=== PATIENT | female | born 1960 | race Caucasian/White ===

== ENCOUNTER 2021-03-11 09:36 | Outpatient (REF) | payer OTHER, SELFPAY ==
[2021-03-11 09:56] LABS: Binax Internal Control QC Valid; Binax Lot number: 1911; Binax Now Covid-19 Ag Negative (Negative)
== END 2021-03-11 09:37 | disposition home or self-care (01) ==
LOC: HO.LAB 09:36
PROVIDERS: Visit Provider Internal Medicine
DX: Z20.822 Contact with and (suspected) exposure to COVID-19 (principal)
CPT/HCPCS: 36415; C9803

== ENCOUNTER → 2025-02-20 08:00 | Outpatient (BNV) | payer OTHER, SELFPAY | PROVIDERS: Visit Provider Radiology Body Imaging | DX: N63.21 Unspecified lump in the left breast, upper outer quadrant (principal) | CPT/HCPCS: 76642; 77062; 77066 ==

== ENCOUNTER 2025-02-20 08:10 | Outpatient (REF) | payer OTHER, SELFPAY ==
--- NOTE | ~2025-02-20 | US_ITS ---
EXAMINATION(S): 1. MM DIAGNOSTIC DIGITAL BREAST TOMOSYNTHESIS, BILATERAL 2. TARGETED ULTRASOUND OF THE LEFT BREAST CLINICAL INFORMATION: N63.20 - Unspecified lump in the left breast, unspecified quadrant COMPARISON: None. This is a baseline study. TECHNIQUE: Digital breast tomosynthesis is performed in both the mediolateral oblique and craniocaudal views along with computer-aided detection (CAD). Synthesized 2D images are generated from the tomosynthesis. Skin BB marker was placed at the location of the palpable concern in the left breast. FINDINGS: BREAST COMPOSITION: The breasts are heterogeneously dense, which may obscure small masses. RIGHT BREAST: Asymmetry in the subareolar region on the MLO view. No suspicious calcifications or other abnormalities are seen. Targeted ultrasound of the right breast was performed at the location of the mammographic finding. The survey of the retroareolar region of the right breast shows a 1.6 x 0.6 x 0.8 cm simple cyst at 12 o'clock position. No internal vascularity demonstrated with color Doppler evaluation. LEFT BREAST: -Approximately 3.0 cm spiculated mass in the upper outer quadrant at about 7 cm from the nipple, subjacent to the skin BB marker. -Approximately 1.7 cm mass with spiculated margins in the lower axillary region at about 15 cm from the nipple. Targeted ultrasound of the left breast was performed at the location of the palpable/mammographic findings. -At the palpable concern as indicated by the patient and mammographic finding, there is an irregular hypoechoic solid mass, with the largest component measuring 2.1 x 1.9 x 2.0 cm at 2 o'clock position at 8 cm from the nipple. -At the location of the mammographic finding in the lower axilla. The survey shows a 1.7 x 1.2 x 1.7 cm irregular hypoechoic solid mass, which may represent an abnormal lymph node or additional mass. No internal vascularity demonstrated with color Doppler evaluation. US/US Breast BI Limited Mamm Only IMPRESSION: RIGHT BREAST: Benign, no mammographic evidence of malignancy. LEFT BREAST: 1. Palpable solid mass at 2 o'clock position at 8 cm from the nipple, with the largest component measuring 2.1 cm. Suspicious findings. An ultrasound-guided needle core biopsy is recommended. 2. Abnormal lymph node or additional solid mass in the lower axilla. Suspicious findings. An ultrasound-guided fine-needle aspiration or needle core biopsy is recommended. ASSESSMENT: BI-RADS: Category 4: Suspicious RECOMMENDATION: Biopsy recommended Results were discussed by me with the patient at time of visit. This patient's information was entered into a reminder system with a target due date for their next mammogram. Electronically signed by: Jack Garcia MD 02/20/2025 10:29 AM [facility] [place]
== END 2025-02-20 08:11 | disposition home or self-care (01) ==
LOC: HO.MAMMO 08:10
PROVIDERS: Visit Provider Nurse Practitioner Family
DX: N64.89 Other specified disorders of breast (principal); N63.21 Unspecified lump in the left breast, upper outer quadrant
CPT/HCPCS: 76642; 77062; 77066

== ENCOUNTER 2025-03-12 11:24 | Outpatient (AMB) | payer OTHER, SELFPAY ==
--- NOTE | 2025-03-12 11:26 | A.OFFPC_ITS ---
Vital Signs 03/12/25 11:33 Height 5 ft 7 in Weight 166 lb 6 oz BMI 26.1 BP 132/70 Blood Pressure Location Lt brachial Position Sitting Respiration 13 Pulse 78 Pulse Source Pulse Oximeter Temp 97.5 F Temp Source Oral Pulse Oximetry (%) 96 Oxygen Delivery Method Room Air Intake Visit Reasons: Est. Care (see comment) Intake Note: New patient to establish care Nuclear Medical Technologist Required: No Allergies Sulfa (Sulfonamide Antibiotics) Allergy (Severe, Verified 03/12/25 11:46) Rash Medication List - Last Reconciled 03/12/25 by Doreen Bullock, SOLIDS CONTROL TECHNICIAN- multivitamin 1 tab PO DAILY Tobacco use date assessed: 03/12/25 Dental Screening Dental Screen Date: 03/12/25 Did you have a dental visit in the last 12 months?: Yes Did you have a dental problem in the last 6 months where you did not have access to dental care?: No Was dental information given to patient?: Patient has dentist HPI HPI Comments History of Present Illness Details 64 y/o F with abnormal mammo, current sm oker 40 pyh, s/p GLENDA, appendectomy Social: , works at [employer] in [place], has 2 sons, 4 grandchildren Fhx: She is adopted and does not know her family medical history. Health Maintenance Flu 12/2024 Tdap 03/12/25 Mammo 01/2025 EDOUARDRamiro Jarvis has never had one [facility] Specialists Gen Surg History of Present Illness The patient is a 64 year old female presenting with establishing care and evaluation of a left breast mass. Left breast mass: - The patient presents to establish care after a mammogram revealed a mass in her left breast. - She reports months of worsening pain i n the breast, which prompted her to seek a mammogram. - This was her first mammogram. - The patient notes that the breast appe ars visually different. - She believes she has breast cancer and thinks it may be stage 4. - She has an appointment with a general surgeon, Dr. Lorenzo, on April 02 and a biopsy scheduled for April 04. - She is adopted and does not know her f amily medical history. - The patient reports some fatigue but o therwise feels healthy and is physically active. Tobacco use disorder: - The patient is a current smoker, farhan ng one pack per day for approximately 40 years. - She acknowledges she will have to quit but is not ready at this moment. - She does not drink alcohol or use illi cit drugs. Preventative Care: - The patient has been without a primary care provider for several years. - She has never had a colonoscopy. - The patient has had a flu shot this ye ar but has not had a Tdap vaccine in the last 10 years. Past Medical History - Total abdominal hysterectomy, date unk nown. - Appendectomy, date unknown. - Sinus infection treated with fluticaso ne nasal spray in the summer. - Allergy to sulfa. - Adopted, family history unknown. Review of Systems - Constitutional: Reports fatigue and a 30-pound weight gain over the last year and a half. - Breast: Reports a painful mass in the left breast which has worsened over months. - Respiratory: Denies shortness of breat h and cough. - Neurological: Reports occasional heada ches. - Psychiatric: Denies symptoms of anxiet y or depression currently requiring medication but reports trying not to think about her diagnosis. Physical Exam General: Well developed, well nourished, in no acute distress. Appears stated age. Head: Normocephalic, atraumatic. Eyes: Pupils are equal, round and reactive to light and accommodation. Conjunctivae are clear. Vision grossly normal. Lungs: Clear to auscultation bilaterally. No rales, rhonchi or wheeze noted. Good air flow in all raman. Chest: L breast w/ obvious mass deformity; palpable mass Heart: Regular rate and rhythm. No murmurs, click, rubs or gallops are noted. Psych: Mood and affect appropriate. Results - Imaging: - Mammogram: Revealed a mass in the left breast. Labs from today pending Medical Decision Making The patient is a 64-year-old female with a new diagnosis of a left breast mass found on her first mammogram, presenting to [facility] care. She has been experiencing worsening breast pain for months and notes a visible change in the breast. Given her history of smoking a pack a day for 40 years, there is concern for malignancy, and she herself believes she has advanced breast cancer. She has already been scheduled for a surgical consultation on April 02 and a biopsy on April 04. She has expressed a strong desire to delay any further evaluation or discussion of the findings until after the to avoid upsetting her family, a decision which is supported. Labs will be drawn to screen for anemia, which can be a sign of advanced cancer. Further imaging beyond the scheduled biopsy, such as a PET scan to determine staging, will be deferred until after the pathology results are known. The patient's coping mechanism appears to be avoiding dwelling on the diagnosis, and she currently declines any medication for anxiety. We also discussed the importance of Tdap vaccination, especially for protection against tetanus with upcoming procedures, and she has agreed to receive it today. The patient will be instructed on how to use the patient portal for communication, particularly for receiving lab results. Plan 1. Left Breast Mass - The patient will proceed with her sche duled appointment with general surgery on April 02 and biopsy on April 04. - Lab work will be ordered to screen for anemia. - The staging process, likely involving a PET scan, will follow the biopsy and pathology results, which will determine the type of cancer. - The patient expressed a desire to wait until after the holidays for these appointments, which is respected. - A discussion was held regarding treatm ent options, including chemotherapy and alternative treatments, and the importance of aligning treatment with her quality of life goals. 2. Tobacco Use Disorder - The patient smokes a pack a day and martins s done so for about 40 years. - She acknowledges the need to quit but is not ready at this time. - Offered support for cessation, such as nicotine replacement, which she may consider in the future. 3. Preventative Care: Establishment Of C are - This visit serves to establish primary care. - The patient was instructed to sign up for the patient portal to facilitate communication and receive lab results. 4. Preventative Care: Tdap Immunization - Discussed the importance of a Tdap vac cine for protection against tetanus, especially with upcoming procedures, and pertussis, given her contact with young grandchildren. - The patient agreed and will receive th e Tdap vaccine today. 5. Preventative Care: Colon Cancer Scree bao - The patient reports she has never had a colonoscopy, which is recommended for screening. - Will hold off on this for right now Patient Instructions - Keep your appointments with Dr. Rhea franks on April 02 and for your biopsy on April 04. - Please sign up for the patient portal. This will be the best way to communicate with me and to receive feedback on your lab results. - It is recommended that you receive a T dap (tetanus, diphtheria, and whooping cough) vaccine today. This is important to reduce infection risk with any future procedures and to protect your young grandchildren. - We will draw some blood today for lab tests to check for things like anemia (low red blood cell count). - Please reach out through the patient p ortal if your mood changes or if you feel you need support for anxiety or depression. - Let me know when you are ready to disc uss quitting smoking, and we can provide support and resources. - RTO as needed and for a CPE after work up for breast mass is complete. Consent Patient was informed and verbally consented to the use of an ambient scribe for clinic note documentation during this visit. Total time spent caring for the patient today was 45 minutes. This includes time spent before the visit reviewing the chart, time spent during the visit, and time spent after the visit on documentation, reviewing laboratory results, diagnostic imaging, medications, performing a medically necessary evaluation, counseling on diagnoses, care coordination, ordering appropriate tests, ordering appropriate medications, review of tests performed by other providers, reporting test results with the patient, communication with other healthcare providers. [facility] Medical History (Updated 03/12/25 @ 14:37 by Doreen Bulolck, [facility]) Hx of mammogram (~12/2024) No pertinent family history No pertinent past medical history Surgical History (Updated 03/12/25 @ 11:32 by Kwasi Jaramillo MA) H/O: hysterectomy History of appendectomy Social History (Updated 03/12/25 @ 11:36 by Kwasi Jaramillo MA) Household Members: Spouse and Children Both parents involved: No Caregiver staying overnight: No Housing: House Are you a primary physician locums urgent care to a significant other at home: Yes Do you presently have visiting nurse or other home services: No 75 years or older and lives alone: No Patient Tobacco Use Status: Current everyday Tobacco user Tobacco use type: Cigarette Cigarette Packs Per Day: 1 Cigarettes Per Day: 20 Years Smoked: 40 Packs Per Year: 40 Packs per year/per ci.00 e-Cigarette/Vaping Use: Never Used Second Hand Smoke Exposure: No service: No Current occupational status: employed Current occupation: [employer] Current occupational exposures/hazards: No Cognitive needs: No Hearing needs: No Vision needs: No Questionnaire PHQ-9 Over the last 2 weeks, how often have you been bothered by any of the following problems? 1. Little interest or pleasure in doing things: not at all 2. Feeling down, depressed, or hopeless: not at all 3. Trouble falling or staying asleep, or sleeping too much: not at all 4. Feeling tired or having little energy: several days 5. Poor appetite or overeating: not at all 6. Feeling bad about yourself - or that you are a failure or have let yourself or your family down: not at all 7. Trouble concentrating on things, such as reading the newspaper or watching television: not at all 8. Moving or speaking so slowly that other people could have noticed. Or the opposite - being so fidgety or restless that you have been moving around a lot more than usual: not at all 9. Thoughts that you would be better off or of hurting yourself in some way: not at all Total score: 1 Depression Screening Interpretation: Negative Depression Screening Done: Yes 63045 - PHQ-9 Billing: Yes Source: Developed by Drs. Humble Frost, Manju Pittman, Melvin Perez and colleagues, with an educational chetan from [employer]. Thrive Questionnaire Date Thrive assessed: 03/12/25 I am a: Patient What is your living situation today?: I have a steady place to live Within the past 12 months, did the food you bought not last and you didn't have the money to get more?: Never true Within the past 12 months, did you worry whether your food would run out before you got money to buy more?: Never true Do you have trouble paying for medicines?: No Do you have trouble getting transportation to medical appointments?: No Do you have trouble paying your heating and electricity bill?: No Do you have trouble taking care of your child, family member or friend?: No Do you have trouble with day-to-day activities such as bathing, preparing meals, shopping, managing finances, etc.?: No Are you currently unemployed and looking for a job?: No Are you interested in more education?: No Please select the resources that you would like help with: None Currently or been in a relationship where the following occur: No concerns reported THRIVE Score: 0 AUDIT C Alcohol Use Questionnaire (AUDIT-C) 1. How often do you have a drink containing alcohol?: Never 3. How often do you have six or more drinks on one occasion?: Never Total Score: 0 Score Reviewed/Action Taken: Yes CALVIN-7 AMB Questionnaire CALVIN-7 Date CALVIN - 7 assessed: 03/12/25 Feeling nervous, anxious, or on edge: 0 = Not at all Not being able to stop or control worryin = Not at all Worrying too much about different things: 0 = Not at all Trouble relaxin = Not at all Being so restless that it is hard to sit still: 0 = Not at all Becoming easily annoyed or irritable: 0 = Not at all Feeling afraid as if something awful might happen: 0 = Not at all Total CALVIN-7 score (0-4 normal; 5-9 mild; 10-14 moderate; 15-21 severe): 0 Source: Developed by Drs. Humble Frost, Manju Pittman, Melvin Perez and colleagues, with an educational chetan from [employer]. CALVIN-7 Assessment Billing CALVIN-7 Assessment Tool: CALVIN-7 Assessment 21233 Physical exam (Primary Care) Vital Signs: Last Vital Signs Temp 97.5 F 03/12/25 11:33 Pulse 78 03/12/25 11:33 Resp 13 03/12/25 11:33 BP 132/70 03/12/25 11:33 Pulse Ox 96 03/12/25 11:33 Oxygen Delivery Method Room Air 03/12/25 11:33 BMI result Body Mass Index 26.1 Tobacco/Smoking Status: Tobacco use Status Tobacco use date assessed 03/12/25 03/12/25 11:36 Patient Tobacco Use Status Current everyday Tobacco 03/12/25 11:36 Tobacco use type Cigarette 03/12/25 11:36 e-Cigarette/Vaping Use Never Used 03/12/25 11:36 Tobacco cessation counseling provided: Yes Items discussed: Nicotine replacement, QuitWorks and Other Relapse Prevention: discussed the importance of a supportive environment, discussed extending NRT, discussed negative mood or depression after quitting, weight gain after smoking is common and discussed dietary, exercise and/or lifestyle changes Number of minutes spent counselin CPT code: 54900 - 4-10 Minutes PHQ-9: PHQ-9 Score PHQ-9: Total score 1 03/12/25 13:31 Depression Screening Interpretation: Negative Thrive Assessment: Date of Thrive Assessment Date Thrive assessed 03/12/25 03/12/25 11:36 Currently or been in a relationship where the following occur: No concerns reported Immunizations Boostrix Tdap 2.5 Lf unit-8 mcg-5 Lf/0.5 mL intramuscular syringe Performing Provider: HITESH Bar Performing Location: [facility] Family Medicine Administered by: Alma Rosa Brice CMA on 03/12/25 13:31 Dose Route Admin Location Dispensed Lot Number Expiration Date NDC Spice Blender 0.5 mL IM Left Deltoid 0.5 mL [id number] 02/23/27 [id number] [employer] Total Dispensed Waste 0.5 mL 0 % VIS Given Date VIS Provided VIS Publication Date 03/12/25 Single Vaccine 20 Eligibility Eligibility Date Funding Source Not [facility] Eligible 03/12/25 Private Coding Level of Care Code New Pt Level 4 (29182) Add On Problem Visit Only Diagnoses Encounter to establish care with new provider Z76.89 Current smoker F17.200 Hx of mammogram Z92.89 Left breast lump N63.20 Fatigue, unspecified type R53.83 Fatigue type: unspecified Need for Tdap vaccination Z23 Additional Codes CALVIN-7 Assessment Billing - CALVIN-7 Assessment Tool: CALVIN-7 Assessment 37808 ([id number]) PHQ-9 - 28397 - PHQ-9 Billing: Yes ([id number]) Vital Signs *Quality* - CPT code: 31310 - 4-10 Minutes ([id number]) Assessment & Plan Assessment & Plan (1) Encounter to establish care with new provider: Code(s): Z76.89 - Persons encountering health services in other specified circumstances (2) Current smoker: Comment: 40 pack year history Not interested in quitting at this time Lung ca screening deferred @ this time Code(s): F17.200 - Nicotine dependence, unspecified, uncomplicated Category: Social Hx (3) Hx of mammogram: Onset Date: ~12/2024 Code(s): Z92.89 - Personal history of other medical treatment Category: Medical (4) Left breast lump: Code(s): N63.20 - Unspecified lump in the left breast, unspecified quadrant Category: Medical (5) Fatigue: Code(s): R53.83 - Other fatigue Category: Medical Qualifiers: Fatigue type: unspecified Qualified Code(s): R53.83 - Other fatigue (6) Need for Tdap vaccination: Onset Date: ~03/12/25 Code(s): Z23 - Encounter for immunization Category: Medical Plan . Orders: Orders Complete Blood Count no Diff Today N63.20 - Unspecified lump in the left breast, unspecified quadrant, R53.83 - Other fatigue Comprehensive Met. Panel Today N63.20 - Unspecified lump in the left breast, unspecified quadrant, R53.83 - Other fatigue Vitamin B12 and Folate Today N63.20 - Unspecified lump in the left breast, unspecified quadrant, R53.83 - Other fatigue Vitamin D 25-OH Total Today N63.20 - Unspecified lump in the left breast, unspecified quadrant, R53.83 - Other fatigue Ferritin Today F17.200 - Nicotine dependence, unspecified, uncomplicated, R53.83 - Other fatigue IRON PROFILE Today F17.200 - Nicotine dependence, unspecified, uncomplicated, R53.83 - Other fatigue Hemoglobin A1c Today N63.20 - Unspecified lump in the left breast, unspecified quadrant, R53.83 - Other fatigue Lipid Panel Today N63.20 - Unspecified lump in the left breast, unspecified quadrant, R53.83 - Other fatigue Microalbumin, Random (w Creat) Today N63.20 - Unspecified lump in the left breast, unspecified quadrant, R53.83 - Other fatigue TSH reflex Free T4 Today N63.20 - Unspecified lump in the left breast, unspecified quadrant, R53.83 - Other fatigue TDaP Immunization Today Z23 - Encounter for immunization Patient Instructions: Walk-In Care (Urgent Care): We Make it Easy Walk-in for urgent medical issues such as: ? Seasonal Allergies ? Insect Bites ? Cough ? Diarrhea ? Acute Asthma Attacks ? Back, Knee or Joint Pain ? Ear Infection ? Fever without a Rash ? Headaches ? Nausea ? [place], Rash or Skin Irritation ? Sore Throat ? Sports Physicals ? Vomiting Most insurances are accepted. Patients do not need to be part of the [facility] to seek care at the walk-in clinic. Locations [address] [place] [address] Open Wednesday through Wednesday 8am-5pm *Hours may vary due to staffing availability. To confirm Walk-In Care hours please call. [address] [facility] , [place] [address] ? [phone] [facility] Walk-In Care in [place] provides services to ages 18 and over. Open Wednesday-Wednesday: 7 a.m. to 5 p.m. and Wednesday: 9 a.m. to 3 p.m.* *Hours may vary due to staffing availability. To confirm Walk-In Care hours in [place], please call [phone]. [address] [place] [address] ? [phone] [facility] Walk-In Care in [place] provides services to ages 12 and over. Open Wednesday-Wednesday: 8 a.m. to 5 p.m. Hours may vary due to staffing availability. To confirm Walk-In Care hours in [place], please call [phone]. LABORATORY SERVICES: [facility] Lab ? Primary Location [address] [place] [address] Wednesday through Wednesday 6:00 AM ? 5:00 PM Wednesday 7:00 AM ? 11:00 AM* [phone] The [facility] Lab is centrally located near the front entrance of the [facility] for easy outpatient access. Convenient parking is provided for outpatients. *Hours may vary due to staffing availability. To confirm Laboratory hours for any location, please call [phone]. Offsite Location For your convenience, we offer offsite laboratory draw stations at the following locations: [address] [place] [address] ? [address], [facility] Wednesday through Wednesday 7:30 AM ? 1:00 PM* [phone] *Hours may vary due to staffing availability. To confirm Laboratory hours for any location, please call [phone]. [place] ? [address] Wednesday through Wednesday 6:00 AM ? 3:30 PM* Wednesday 6:30 AM ? 3 PM* [phone] *Hours may vary due to staffing availability. To confirm Laboratory hours for any location, please call [phone] [place] [address] Wednesday through Wednesday 7:30 AM ? 4:00 PM* [phone] *Hours may vary due to staffing availability. To confirm Laboratory hours for any location, please call [phone] [place] [address] Wednesday through 9:00 AM ? 4:00 PM* *Hours may vary due to staffing availability. To confirm Laboratory hours for any location, please call [phone]. Appointments are not necessary. Walk-ins are welcome. Like all the departments throughout the [facility], our Lab undergoes frequent reviews to ensure the quality and accuracy of test results, and our staff takes special pride in its status as a nationally accredited facility. Patient Portal: [facility] ONE PATIENT. ONE RECORD. BETTER CARE. [facility] has a fully integrated, cutting- edge mobile electronic health information system that has revolutionized the way we care for our patients and manage our organization. This system improves communication and coordination enabling us to provide safe, higher-quality care, and an overall positive experience for staff and patients. Our first priority, as always, is to deliver the highest quality care possible. The system is running in the background supporting that priority. This portal is for all [facility] services and practices. If you are experiencing any technical difficulties with enrolling or logging into the Patient Portal please complete the [facility] Patient Portal Technical Support Form. [facility] now offers a new secure on-line interactive tool for patients to review their health information ? ?Patient Portal. This interactive web portal will enable patients and their families to take an active role in their care by providing easy, secure access to their health information via the internet. The Patient Portal provides patients with instant access to their health information, including laboratory results, medications, allergies, demographic information, visit history, and more. In addition to managing their own care, parents and health care proxies with authorized consent will appreciate the ability to access the records of those individuals for whom they provide care. Please note: if you wish to gain access (Proxy) to another patient?s portal, you will be required to come to the Medical Records Department in person at [facility]. Both the patient giving proxy access and the proxy will need to provide photo identification and complete the appropriate authorization. The Patient Portal also allows track their appointments online. The [facility] Patient Portal also saves patients time by allowing them to submit updates to their demographic and contact information prior to their visits. Portal email notifications will also alert patients to any new activity on their portal, such as test results and new appointments. In order to initially enroll in the [facility] Patient Portal, you will need to enter some required information including the following: * your [facility] Medical Record number * your personal home email address * name * date of Please note: In order to enroll in the [facility] Patient Portal, we need to have your email address on file in your electronic medical record. ?The email address needs to be specific for one person (yourself) in order for your Portal enrollment to be successful. ?You can update your email address in person with our Registration staff when you are registering for a hospital visit. ?Otherwise, you will need to come to the Health Information Management (Medical Records) Department at [facility]. ?We are open from Wednesday ? Wednesday from 7:30 a.m. ? 4:30 p.m. ?You will be required to present a photo id. Once you have successfully enrolled in the Patient Portal, you will receive a one-time user id and password for the Portal, sent to your email address. ?This will allow you to log into the Patient Portal within 99 hrs and reset your own logon id and password, and define personal security questions. ?Once your permanent login and password have been set, you can log into the [facility] Patient Portal at any time via the blue button above or from the Portal Logon button on any page of the [facility] [facility]. [facility] and [facility] encourage all of our patients to enroll in Patient Portal as it presents a valuable opportunity for patients and their families to actively participate in their care and stay healthy Welcome to [facility]. ?We look forward to working with you.
[2025-03-12 11:33] VITALS: BP 132/70; PULSE 78; RESP 13; TEMP 36.4; O2SAT 96; BMI 26.1
== END 2025-03-12 12:34 | disposition home or self-care (01) ==
LOC: HO.HMCFM 11:25
PROVIDERS: PCP Nurse Practitioner Family; Visit Provider Nurse Practitioner Family
DX: Z76.89 Persons encountering health services in other specified circumstances (principal); F17.200 Nicotine dependence, unspecified, uncomplicated; Z92.89 Personal history of other medical treatment; N63.20 Unspecified lump in the left breast, unspecified quadrant; R53.83 Other fatigue; Z23 Encounter for immunization

== ENCOUNTER 2025-03-12 11:24 | Outpatient (REF) | payer OTHER, SELFPAY ==
[2025-03-12 15:41] LABS: Microalbum/Creatinine Ratio Ur 37.4 ug/mg cr (<30)
[2025-03-12 18:18] LABS: Hematocrit 50.7 % (37.0-47.0); Hemoglobin 16.9 g/dl (12.0-16.0); Mean Corpuscular HGB Conc 33.3 g/dl (31.0-35.0); Mean Corpuscular Hemoglobin 30.5 pg (27.0-33.0); Mean Corpuscular Volume 91.4 fL (80.0-98.0); NRBC Abs Auto 0.000 X10*3/uL (0.0-0.012); NRBC Pct Auto 0.0 /100WBC (0.0-0.2); Platelet Count 298 X10*3/uL (160-400); Red Blood Count 5.55 X10*6/uL (4.20-5.50); White Blood Count 9.5 X10*3/uL (4.8-10.8)
[2025-03-12 19:01] LABS: Alanine Aminotransferase 27 U/L (0-31); Albumin Level 5.0 g/dL (3.5-5.0); Alkaline Phosphatase 83 U/L (39-117); Anion Gap 14 (12-20); Aspartate Amino Transferase 28 U/L (5-31); Blood Urea Nitrogen 15 mg/dL (9-16); Calcium 10.2 mg/dL (8.4-10.2); Carbon Dioxide 25 mmol/L (22-29); Chloride 108 mmol/L (96-108); Cholesterol 194 mg/dL (<200); Estimated Glomerular Filt Rate > 60; Ferritin 102 ng/mL (10-250); HDL Cholesterol 69 mg/dL (>40); Iron 82 mcg/dL (30-160); Percent Iron Saturation 26 % (15-50); Potassium 4.9 mmol/L (3.3-5.1); Sodium 142 mmol/L (135-145); Total Iron Binding Capacity 311 mcg/dL (228-428); Total Protein 7.4 g/dL (6.5-8.0); Triglycerides 95 mg/dL (<150); Unsaturated Iron Binding 229 ug/dL
[2025-03-12 19:12] LABS: Folate 13.3 ng/mL (> or = 4.0); Vitamin B12 713 pg/mL (200-900)
== END 2025-03-12 11:25 | disposition home or self-care (01) ==
LOC: HO.WFDLDS 11:24
PROVIDERS: PCP Nurse Practitioner Family; Visit Provider Nurse Practitioner Family
DX: Z23 Encounter for immunization (principal); Z76.89 Persons encountering health services in other specified circumstances; R53.83 Other fatigue; N63.20 Unspecified lump in the left breast, unspecified quadrant; F17.210 Nicotine dependence, cigarettes, uncomplicated; Z92.89 Personal history of other medical treatment; Z79.899 Other long term (current) drug therapy
CPT/HCPCS: 36415; 80053; 80061; 82043; 82306; 82570; 82607; 82728; 82746; 83036; 83540; 84443; 85027; 90471; 90715; 96127